=== PATIENT | female | born 1930 | race Caucasian/White ===

== ENCOUNTER → 2016-06-05 | Day surgery (SDC) | payer MEDICARE, BC ==
[~2016-06-05] MED LIST: BUPIVACAINE 0.5% 30 ML VIAL ONE; Clindamycin 600 mg/D5W 50 ml 600 MG/50 ML IVB IV ONE; DEXAMETHASONE 4 MG/ML VIAL IV ONE; FENTANYL 100 MCG/2 ML VIAL IV ONE; FENTANYL 100 MCG/2 ML VIAL IV PRN; KETOROLAC TROMETH 30 MG/ML VIAL IM ONE; LABETALOL 20 MG/4 ML SYRINGE IV PRN; LIDOCAINE 1% 10 ML (METHYLPARABEN FREE) ONE; MEPERIDINE 25 MG/ML TUBEX IV PRN; ONDANSETRON HCL 4 MG ODT TAB PO PRN; ONDANSETRON HCL 4 MG/2 ML VIAL IV ONE; ONDANSETRON HCL 4 MG/2 ML VIAL IV PRN; PROPOFOL 200 MG/20 ML VIAL IV ONE; Sodium Bicarbonate (Neut) 2.4 mEq/5 ml vial INF ONE; hydrALAZINE 20 MG/ML VIAL IV PRN
[2016-06-05 07:43] LABS: AUTOMATED BASOPHIL 0.5 % (0-2); AUTOMATED EOSINOPHIL 1.5 % (0-5); AUTOMATED LYMPH 20.8 % (17-44); AUTOMATED NEUTROPHIL 67.2 % (45-76); MPV 7.9 fL (7.4-10.4)
[2016-06-05 07:53] LABS: LEUKOCYTES/URINE NEG (NEGATIVE); NITRITE/URINE NEG (NEGATIVE); URINE OCCULT BLOOD 1+ (NEG/TRACE)
[2016-06-05 08:20] LABS: BLOOD UREA NITROGEN 12 MG/DL (7-17); CALC CORRECTED 9.4 MG/DL (8.4-10.2); CALCIUM 9.1 MG/DL (8.4-10.2); CALCULATED OSMOLALITY 275 MOs/Kg (270-290); CHLORIDE 109 mEq/L (98-107); GLUCOSE 93 MG/DL (70-99); SODIUM LEVEL 143 mEq/L (137-146); TOTAL PROTEIN 7.8 G/DL (6.3-8.2)
--- NOTE | 2016-06-05 09:04 | HIM.ANES ---
Anesthesia Evaluation & Plan Diagnoses: OTHER SPECIFIED DISORDERS OF BREAST (06/05/16) Consented Procedure: left needle localized lumpectomy - Focused Review of Systems Cardiac History: No: Hx Cardiac Disorders HEENT: Yes: Hx Hearing Impairment, Cataract Removal, Hx Vision Problem ( PRESCRIPTION GLASSES), Other HEENT Problems Hx Other HEENT Surgery: TONSILECTOMY Hx Other HEENT Problems: H/O VERTIGO Respiratory: Yes: Hx Recent Cold/Flu (current) Gastrointestinal: No: Hx Gastrointestinal Disorders, Hx Colonoscopy, Hx Endoscopy Neurological/Musculoskeletal: No: Hx Neurological Disorders Psychological: No Hx Mental/Emotional Disorders Blood/Autoimmune: No: Hx AIDS, Hx Hepatitis (type) Smoking Status: Never smoker Other Surgical History: TONSILECTOMY CYSTOSCOPY WITH JJ STENTS 06/05/16 09:04 right mastectomy - Focused Physical Exam NPO since: 06/05/16 1630 Mallampati: Class II Thyromental Distance: Greater than 3 Neck: Limited Range of Motion Dental: Removable Dental Work Cardiovascular/Chest: Normal Respiratory: Lungs clear Any problems with anesthesia, including nausea and vomiting?: No Any relatives with a history of Malignant Hyperthermia?: No Does patient have a history of Malignant Hyperthermia?: No Beta Bailee given (if appropriate): N/A Does the patient have a history of Motion Sickness-: No Other: CBC/BMP/Other 06/05/16 07:28 06/05/16 07:28 Allergies Allergy/AdvReac Type Severity Reaction Status Date / Time codeine Allergy Severe Nausea/Vomi Verified 06/05/16 07:55 ting morphine [From MS Contin] Allergy Severe Nausea/Vomi Verified 06/05/16 07:55 ting Penicillins Allergy Severe Rash-Genera Verified 06/05/16 07:55 lized shellfish derived Allergy Severe Hives* Verified 06/05/16 07:55 Home Medications Medication Instructions Recorded Last Taken Type No Home Medications 06/03/16 Unknown History Height and Weight Patient's height 5 ft 4 in Patient's weight 69.4 kg Vital Signs Temperature 96.9 F L 06/05/16 07:34 Pulse Rate 63 06/05/16 07:34 Respiratory Rate 16 06/05/16 07:34 Blood Pressure 147/71 06/05/16 07:34 Pulse Oxygen Saturation 98 06/05/16 07:34 METS - Level of Activity: Climbing stairs(1 flight),walking level ground, running short distance - Anesthetic Plan Anesthesia Type: General ASA Class: 2 -: I have examined this patient and reviewed the medical record. The patient has been assessed prior to anesthesia. Risks and benefits of anesthesia and anesthetic technique options have been discussed and all questions answered. The patient accepts the risk and desires me to proceed with the planned anesthetic.
--- NOTE | 2016-06-05 10:40 | HIMOPRPT ---
DATE OF PROCEDURE: 06/05/16 PREOPERATIVE DIAGNOSIS: Left breast radial scar, personal history of breast cancer POSTOPERATIVE DIAGNOSIS: Same, final pathology pending PROCEDURES: Left needle localized breast biopsy. SURGEON: Trung Lorenzo MD ANESTHESIA: Laryngeal mask airway COMPLICATIONS: None. SPECIMENS: Left breast tissue with localizing needle to Radiology, then Pathology. PACKINGS AND DRAINS: None. BLOOD LOSS: 1 cc OPERATIVE FINDINGS AND TECHNIQUE: With consent, the patient was brought to the same-day Surgery Unit in [facility]. She underwent needle localization of the left breast biopsy-proven radial scar. This was performed by Dr. Knight. The patient was then taken back to the operative suite and underwent general anesthesia. The left breast was then prepped and draped in usual fashion. A curvilinear incision was made in the lateral portion the left breast. Dissection was carried down through subcutaneous tissue and deeper tissues. A generous portion of the lateral portion of the left breast was taken out with the localizing wire. Specimen was excised and marked with anatomic orientation sutures and passed off for radiographic imaging. Dr. Knight performed image of specimen radiograph, and this showed the specimen contained the resected specimen, the mammographic abnormality, the clip, and localizing wire. The specimen was then passed off for pathologic characterization. Wound was irrigated and dried. Deep , subcutaneous, and subcuticular tissues were injected with 0.5% Marcaine. Skin approximation was accomplished using 4-0 Monocryl in subcuticular fashion. Dermabond 2 x 2 gauze, and Tegaderm dressing were applied to the wound. The patient tolerated the procedure well, with the findings as described. At termination of the procedure, all instrument, sponge, and needle counts were correct
[2016-06-05 10:49] VITALS: TEMP 97
[2016-06-05 11:38] VITALS: PULSE 62
--- NOTE | 2016-06-05 11:59 | DIRPT ---
CLINICAL DATA: Surgical excision of a high risk complex sclerosing lesion/radial scar from the upper outer quadrant of the left breast after needle localization earlier today. EXAM: SPECIMEN RADIOGRAPH OF THE LEFT BREAST COMPARISON: Previous exam(s). FINDINGS: Status post excision of the left breast. The wire tip, the coil shaped tissue marker clip and the focal density identified on prior mammography are present in the specimen. A benign appearing intramammary lymph node is also present in the specimen adjacent to the tissue marker clip. I discussed this directly by telephone with Dr. Lorenzo while he was still in the operating room. IMPRESSION: Specimen radiograph of the left breast. Electronically Signed By: Chano Knight M.D. On: 06/05/2016 11:57
--- NOTE | 2016-06-05 17:53 | SC.ANESPOS ---
Post-Anesthesia Note LOC: Fully Awake Post-Anesthesia Assessment: Awake, Returned to Baseline, Hemodynamically Stable , Pain Control Adequate Phase I & II Recovery Complete: Yes Apparent Anesthesia Complication: No : N PACU Discharge Time: 11:15 - Vital Signs Blood Pressure: 128/64 Pulse: 62 Resp Rate: 16 O2 Sat: 97 Temp: 97 F - Comments Anesthesia Discharge Time Report Time 11:15
[2016-06-05 17:54] VITALS: BP 128/64
--- NOTE | 2016-06-13 14:48 | DIRPT ---
CLINICAL DATA: Screening detected and biopsy-proven complex sclerosing lesion/radial scar in the outer left breast, middle depth. Localization prior to surgical excision. EXAM: NEEDLE LOCALIZATION OF THE LEFT BREAST WITH MAMMO GUIDANCE COMPARISON: Previous exams. FINDINGS: Patient presents for needle localization prior to surgical excision of the high risk complex sclerosing lesion/radial scar in the outer left breast. I met with the patient and we discussed the procedure of needle localization including benefits and alternatives. We discussed the high likelihood of a successful procedure. We discussed the risks of the procedure, including infection, bleeding, tissue injury, and further surgery. Informed, written consent was given. The usual time-out protocol was performed immediately prior to the procedure. Using mammographic guidance, sterile technique with chlorhexidine as skin antisepsis, 1% lidocaine as local anesthetic, a 5 cm modified Kopans needle was used to localize the coil shaped tissue marker clip placed at the time of biopsy using a lateral approach. The images were marked for Dr. Lorenzo. IMPRESSION: Needle localization of the high risk complex sclerosing lesion/radial scar in the outer left breast. No apparent complications. Electronically Signed By: Chano Knight M.D. On: 06/05/2016 08:29
== END ==
LOC: SDC 06:39 → EDSTATUS 09:15
PROVIDERS: ATTEND Surgery Vascular Surgery
PROC: 0HBU0ZX Excision of Left Breast, Open Approach, Diagnostic (ICD-10-PCS; principal; 2016-06-05 09:30)
DX: N60.22 Fibroadenosis of left breast (principal); L90.5 Scar conditions and fibrosis of skin; N60.92 Unspecified benign mammary dysplasia of left breast; N64.89 Other specified disorders of breast; Z85.3 Personal history of malignant neoplasm of breast; H91.90 Unspecified hearing loss, unspecified ear
CPT/HCPCS: 19125; 19281; 76098; 80053; 81001; 85025; A9270; J1100; J1885; J2405; J3010; J3490